=== PATIENT | male | born 1965 | race Caucasian/White ===

== ENCOUNTER 2022-07-22 20:25 | Emergency (ER) | payer BC, OTHER ==
[2022-07-22 23:55] VITALS: BP 157/100; PULSE 90
== END 2022-07-22 21:42 | disposition home or self-care (01) ==
LOC: FB.ED 20:25
DX: T83.091A Other mechanical complication of indwelling urethral catheter, initial encounter (principal); Z86.16 Personal history of COVID-19; Z90.79 Acquired absence of other genital organ(s)
CPT/HCPCS: 51700; 99283

== ENCOUNTER 2023-11-12 20:20 | Emergency (ER) | payer OTHER ==
[2023-11-12] MEDS ORDERED: Lidocaine 2% 20 ML MDV INFILT ONE (20:21)
[2023-11-12 20:56] VITALS: BP 149/90; PULSE 89
[2023-11-12] MEDS: Diphtheria,Pertussis(Acell),Tetanus Vaccine 0.5 ML Syringe IM ONE (21:00)
== END 2023-11-12 21:10 | disposition home or self-care (01) ==
LOC: FB.ED 20:20
DX: S61.216A Laceration without foreign body of right little finger without damage to nail, initial encounter (principal); Z86.16 Personal history of COVID-19; Z23 Encounter for immunization; W23.0XXA Caught, crushed, jammed, or pinched between moving objects, initial encounter
CPT/HCPCS: 12002; 73140-F9; 90471; 90715; 99283-25